=== PATIENT | female | born 1975 ===

== ENCOUNTER 2025-05-13 07:25 | Emergency (ER) | payer SELFPAY ==
--- NOTE | ~2025-05-13 | XR_ITS ---
CLINICAL HISTORY: pain 3 view right foot Comparison: None provided Findings: No fracture. Bipartite os peroneum. Mild 1st metatarsophalangeal joint osteoarthritis. Tiny focus of heterotopic ossification within the distal Achilles tendon. No tibiotalar joint effusion. IMPRESSION: 1. No acute findings. This document has been electronically signed by: Tavo Shah DO on 05/13/2025 09:45:18
[2025-05-13 07:30] VITALS: BP 116/68; PULSE 83; RESP 18; TEMP 36.1; O2SAT 97; BMI 32.1
--- NOTE | 2025-05-13 07:49 | ED.LOWEXIN ---
HPI - Extremity Injury (Lower) General Chief Complaint: Extremity Injury, Lower Stated Complaint: Right foot hurts Time Seen by Provider: 05/13/25 07:35 Source: patient Mode of arrival: ambulatory Limitations: no limitations History of Present Illness ED Provider: SABIHA Arango HPI Narrative: Year old female presents to the emergency department with progressively worsening right-sided foot pain since . She reports a throbbing constant pain to the arch of the foot denies associated falls or trauma. Reports difficulty walking due to pain she reports she has been limping. Patient reports pain is severe. She does not like taking any medication for pain. Denies numbness, tingling, lower extremity swelling, history of DVT or PE, chest pain, shortness of breath, fevers and chills complaint: foot injury Onset (ago): day(s) (4) Related Data Previous Rx's ?Medication ?Instructions ?Recorded ketorolac 10 mg tablet 10 mg PO TID PRN pain 5 days #15 05/13/25 tabs prednisone 20 mg tablet 40 mg (2 x 20 mg) PO DAILY 5 days 05/13/25 #10 tabs Allergies Allergy/AdvReac Type Severity Reaction Status Date / Time oxycodone (OXYCODONE) Allergy Mild HALLUCINATI Verified 05/13/25 07:32 ONS Review of Systems Review of Systems: Yes all other systems are reviewed and are negative PMFSH Past Medical History Attestation statement: The following information was validated with the patient. Source: old records reviewed and nursing notes reviewed Social History Social History Advance Directives: No Advance Directives Information Provided: Yes Physical Exam Exam: Exam: Appearance: Alert.? Oriented X3.? No acute distress.? Head: Normocephalic, atraumatic, no step-offs or deformities Eyes: Pupils equal, round and reactive to light.? Neck: Normal inspection.? Neck supple.? CVS: Pulses normal.? Respiratory: No respiratory distress Abdomen: Soft and nontender.? Skin: Skin warm and dry.? Normal skin color.? Normal skin turgor.? Extremities: No lower extremity edema.? No calf ttp, negative dalton b/l 5/5 strength to bilateral upper and lower extremities 2+ DP,AT,PT equal and b/l . Normal distal sensation + TTP to arch of R foot over plantar fascia. Back: No midline tenderness, no C-spine tenderness, full range of motion, no CVA tenderness bilaterally Neuro: Oriented X 3.? No motor deficit.? No sensory deficit. CN 2-12 intact Vital Signs: Vital Signs: Last Vital Signs Temp 96.9 F 05/13/25 07:30 Pulse 83 05/13/25 07:30 Resp 18 05/13/25 07:30 BP 116/68 05/13/25 07:30 Pulse Ox 97 05/13/25 07:30 O2 Del Method Room Air 05/13/25 07:30 BMI result Body Mass Index 32.1 vss Course Reevaluation(s) Reevaluation #1: CBC unremarkable. D-dimer negative. Uric acid level within normal range. Unlikely gout, DVT. Time: 08:51 Reevaluation #2: 3 view right foot Comparison: None provided Findings: No fracture. Bipartite os peroneum. Mild 1st metatarsophalangeal joint osteoarthritis. Tiny focus of heterotopic ossification within the distal Achilles tendon. No tibiotalar joint effusion. IMPRESSION: 1. No acute findings. Time: 09:56 Reevaluation #3: Educated patient on diagnosis and treatment plan, answered all question, patient verbalizes understanding. At this time patient will be discharged home, advised to return with new or worsening symptoms. Educated on worrisome signs and symptoms and when to return. At this time I feel comfortable discharge home. Time: 09:56 Medications Administered Discontinued Medications Generic Name Dose Route Start Last Admin Trade Name Buzzq PRN Reason Stop Dose Admin Ketorolac Tromethamine 30 mg 05/13/25 07:49 05/13/25 08:23 Ketorolac Tromethamine 30 Mg/Ml Vial IM 05/13/25 07:50 30 mg ONCE ONE Administration Medical Decision Making Medical Decision Making [facility] Narrative: 1952 49 year old female presents w/ 4 days right foot pain progressivly worsening PE No lower extremity edema.? No calf ttp, negative dalton b/l 5/5 strength to bilateral upper and lower extremities 2+ DP,AT,PT equal and b/l . Normal distal sensation + TTP to arch of R foot over plantar fascia. Hx and pe concerning for plantar fasciitts. Unlikley arterial or venous occlusion, acute threat to [place], fracture dislocation. No signs of cellulitis or foreign body/puncture. Unlikely osteomyelitis Plan imaging, D-dimer, Toradol IM Differential Diagnosis Differential Diagnoses: The differential diagnosis associated with the presentation includes (Hx and pe concerning for plantar fasciitts. Unlikley arterial or venous occlusion, acute threat to [place], fracture dislocation. No signs of cellulitis or foreign body/puncture. Unlikely osteomyelitis) Admission/Observation Consideration of admission/observation: Escalation of care including admission/observation considered (unlikely ) Lab Data [facility] Lab Attestation statement: I reviewed the patient's lab results. 05/13/25 08:15 05/13/25 08:15 Labs: Lab Results 05/13/25 05/13/25 Range/Units 08:15 08:16 WBC 7.2 (4.8-10.8) X10*3/uL RBC 4.33 (4.20-5.50) X10*6/uL Hgb 13.3 (12.0-16.0) g/dl Hct 37.8 (37.0-47.0) % MCV 87.3 (80.0-98.0) fL MCH 30.7 (27.0-33.0) pg MCHC 35.2 H (31.0-35.0) g/dl RDW 12.0 (11.0-16.0) % Plt Count 206 (160-400) X10*3/uL MPV 9.6 (9.4-12.3) fL Immature Gran % (Auto) 0.3 (0.0-0.4) % Neut % (Auto) 67.4 (45-73) % Lymph % (Auto) 22.9 (20-40) % [place] % (Auto) 6.0 (2-11) % Eos % (Auto) 2.4 (0-4) % Baso % (Auto) 1.0 (0-2) % Lymph # (Auto) 1.7 (1.2-4.9) X10*3/uL [place] # (Auto) 0.4 (0.1-1.2) X10*3/uL Eos # (Auto) 0.2 (0.0-0.4) X10*3/uL Baso # (Auto) 0.1 (0.0-0.2) X10*3/uL Abs Immat Gran (auto) 0.02 (0.00-0.03) X10*3/uL Absolute Neuts (auto) 4.9 (2.0-8.3) x10*3/uL Absolute Nucleated RBC 0.000 (0.0-0.012) X10*3/uL Nucleated RBC % (auto) 0.0 (0.0-0.2) /100WBC Hold Purple Top SEE NOTE D-Dimer High Sensitivty < 150 NG/ML Sodium 140 (135-145) mmol/L Potassium 4.0 (3.3-5.1) mmol/L Chloride 109 H (96-108) mmol/L Carbon Dioxide 25 (22-29) mmol/L Anion Gap 10 L (12-20) BUN 14 (9-16) mg/dL Creatinine 0.73 (0.5-1.4) mg/dL Estim Creat Clear Calc 69.4 Estimated GFR > 60 Random Glucose 116 H (60-115) mg/dL Uric Acid 3.9 (2.4-5.7) mg/dL Calcium 9.3 (8.4-10.2) mg/dL Independent Interpretation I performed an independent interpretation of an: Plain X-Ray ( 3 view right foot Comparison: None provided Findings: No fracture. Bipartite os peroneum. Mild 1st metatarsophalangeal joint osteoarthritis. Tiny focus of heterotopic ossification within the distal Achilles tendon. No tibiotalar joint effusion. IMPRESSION: 1. No acute findings.) Radiology Impression Discussion of test interpretation with radiology: I have reviewed the radiologist's reading. Independent Historian Clinical information obtained from an independent historian. History obtained from or confirmed by: Spouse Prescription Management I considered prescription management with: Pain Medication and Other (prednisone ) Critical Care Time Critical Care Time Critical Care Time: No Discharge Plan Discharge Clinical Impression: Plantar fasciitis of right foot Patient Disposition: Home, Self-Care Additional Instructions: Take your medications as prescribed. If you were prescribed antibiotics today, it is important that you take your medication to their entirety, do not skip any doses, do not finish them early. Follow-up with your primary care provider this week. Return to the emergency department with new or worsening symptoms. Such as fevers, chills, chest pain, shortness of breath, nausea, vomiting, dizziness, headache, vision changes, lethargy In case of emergency call 911 Toradol has been sent to your pharmacy, you tolerated this well in the department. Please take this as prescribed do not take this with ibuprofen, or other NSAIDs, do not mix this with alcohol. Side effects of this medication including increased risk for bleeding and possible kidney injury. 3 view right foot Comparison: None provided Findings: No fracture. Bipartite os peroneum. Mild 1st metatarsophalangeal joint osteoarthritis. Tiny focus of heterotopic ossification within the distal Achilles tendon. No tibiotalar joint effusion. IMPRESSION: 1. No acute findings. Prescriptions: New prednisone 20 mg tablet 40 mg PO DAILY 5 Days Qty: 10 0RF ketorolac 10 mg tablet 10 mg PO TID PRN (Reason: pain) 5 Days Qty: 15 0RF Rx Instructions: Tolerated IM or IV in department Referrals: Physician,Unknown J [Physician, Medical] Stand Alone Forms: Work/School Release Print Language: Nepali
--- OUTSIDE RECORDS SUMMARY | 2025-05-13 08:09 | XMS_ITS ---
Author Name [facility] Organization Unknown Care Team Organization Name Specialty Phone Email Start Date End [facility] PRANEETH BRUCE Primary Care 06/30/2022 04/10/20 24
--- OUTSIDE RECORDS SUMMARY | 2025-05-13 08:09 | XMS_ITS | Clinical Summary ---
Author Organization 175 [facility] Address [address] [place] [address] Phone Care Team Providers Care Waiter/Waitress Informal Name Role Phone Dalila Pineda Primary Care Provider + Allergies Active Allergy Reactions Criticality Noted Date Comments Oxycodone Hcl 12/15/2019 Hallucinations Medications albuterol HFA (PROAIR HFA ; PROVENTIL HFA ; VENTOLIN HFA) 90 mcg/actuation inhaler Inhale 2 Puffs into the lungs every 6 hours as needed for Cough or Wheezing. 4 Active diclofenac (VOLTAREN) 1 % topical gel Apply 2 g topically 2 (two) times a day. 100 g 1 5 Active cyclobenzaprine (FLEXERIL) 5 mg tablet Take 1 tablet (5 mg total) by mouth at bedtime as needed for muscle spasms. 30 tablet 5 Active ibuprofen (ADVIL,MOTRIN) 600 mg tabletIndicatio ns:Calcific tendonitis of right shoulder Take 1 tablet (600 mg total) by mouth 3 (three) times a day if needed for mild pain (pain). Take with food 90 tablet 5 Active inhalational spacing device (Aerochamber MV) inhaler Use as instructed 1 each 5 11/30/19 26 Active budesonide-form oteroL (SYMBICORT) 160-4.5 mcg/actuation inhaler Inhale 2 puffs by mouth 2 (two) times a day. 3 each 3 5 12/01/19 26 Active Active Problems Problem Noted Date Diagnosed Date Obesity (BMI 30.0-34.9) 01/26/2022 Encounters Date Type Department Care Team Description 04/02/2025 2:30 PM EDT Procedure visit Orthopedic Surgery [facility] [address] [facility] 160 [place] [phone] Chata Hurley MD Calcific tendonitis of right shoulder (Primary Dx) 02/15/2025 1:00 PM EDT Office Visit Orthopedic Surgery [facility] 175 [facility] [address] [place] [phone] Jane Funes PA Right carpal tunnel syndrome (Primary Dx); Calcific tendonitis of right shoulder from Last 3 Months Surgical History Surgery Date Site/Laterality Comments OTHER SURGICAL HISTORY PROCEDURE: ANESTHESIA FOR SECTION; COMMENT: x 2 Medical History Medical History Date Comments History of cerebral hemorrhage D X:History of cerebral hemorrhage; COMMENT: age 17 - pt states told due to stress ? Obesity (BMI 30.0-34.9) DX:Obesi ty (BMI 30.0-34.9) Family History Medical History Relation Name Comments Other: legally blind Mother Relation Name Status Comments Father (Age 73) covid 19 Mother Alive Social History Tobacco Use Types Packs/Day Years Used Date Smoking Tobacco: Never Smokeless Tobacco: Never Tobacco Cessation:Counseling Given: Not Answered Alcohol Use Standard Drinks/Week Comments Never 0 (1 standard drink = 0.6 oz pur e alcohol) Housing Instability Answer Date Recorde d Are you worried that in the next 2 months you may not have stable housing? No 11/12/2024 Food Access & Nutrition Answer Date Rec orded Do you have access to a vari ety of food including fruits and vegetables? Yes 11/12/2024 Access to Healthcare Answer Date Record ed Within the last 3 months, pavel w many times did you visit the emergency department for your medical care? 0 11/12/2024 Health Literacy Answer Date Recorded How often do you need to hav e someone help you when you read instructions, pamphlets, or other written material from your doctor or pharmacy? Never 11/12/2024 Caregiver: How often do you need to have someone help you when you read instructions, pamphlets, or other written material from your doctor or pharmacy? Not on file 11/12/2024 Financial Risk Answer Date Recorded How hard is it for you to pa y for the very basics like food, housing, medical care, and air conditioning / heating? Not very hard 11/12/2024 Transportation Answer Date Recorded Has the lack of transportati on kept you from meetings, work, or from getting things needed for daily living? No Has the lack of transportati on kept you from medical appointments or from getting medications? No 11/12/2024 Social Isolation Answer Date Recorded How often do you feel lonely or isolated from th ose around you? Never 11/12/2024 Food Risk Answer Date Recorded Within the past 12 months we worried whether our food would run out before we got money to buy more. Never true 11/12/2024 Within the past 12 months th e food we bought just didn't last and we didn't have money to get more. Never true 11/12/2024 Dependent Care Answer Date Recorded Do you need help finding or paying for care for your loved ones. For example, children's service supervisor or elderly care for an older adult? No 11/12/2024 Education Answer Date Recorded Do you think completing more education or training, like finishing a GED, going to college, or learning a trade, would be helpful for you? N/A 11/12/2024 Employment and Income Answer Date Recor ded During the last four weeks, have you been actively looking for work? No 11/12/2024 Living Situation Answer Date Recorded What is your living situation? 0 11/12/2024 Comments No Sex and Gender Information Value Date Recorded Sex Assigned at Female 01/30/2025 2:29 PM EDT Legal Sex Female 4:32 PM EST Gender Identity Female 01/30/2025 2:29 PM EDT Sexual Orientation Not on file Obstetrics History Para Term AB IAB SAB Ectopic Multiple Livin g Live Births 2 Last Filed Vital Signs Vital Sign Reading Time Taken Comments Blood Pressure 118/82 01/19/2025 2:19 PM EDT Pulse 65 01/19/2025 2:19 PM EDT Temperature 36.6 C (97.8 F) 01/19/2025 2:19 PM EDT Respiratory Rate 14 02/15/2025 12:48 PM EDT Oxygen Saturation 98% 01/19/2025 2:19 PM EDT Inhaled Oxygen Concentration - - Weight 65.8 kg (145 lb) 04/02/2025 2:19 PM EDT Height 142.2 cm (4' 7.98 ) 04/02/2025 2:19 PM ED T Body Mass Index 32.53 04/02/2025 2:19 PM EDT Plan of Treatment Upcoming Encounters Date Type Department Care Team (Late st Contact Info) Description 05/18/2025 9:30 AM EDT Office Visit Orthopedic Surgery - [place] [address] [phone] Jane Funes PA 175 [place] [address] 06/15/2025 2:15 PM EDT Office Visit Pulmonology - [address] [phone] Karissa Bowman MD [address] [address] 07/27/2025 2:00 PM EST Office Visit Internal Medicine - [address] [phone] Dalila Pineda PA [address] [address] Health Maintenance Due Date Last Done Comments DTaP,Tdap,and Td Vaccines (1 - Tdap) 1993 Hepatitis B Vaccines (1 of 3 - 19+ 3-dose series) 1993 Colorectal Cancer Screening: Colonoscopy 07/22/2022 HIV Screening 07/22/2022 Hepatitis C Screening 07/22/2022 Cervical Cancer Screening: Pap Smear 10/12/2022 10/12/2019 Pneumococcal Vaccine: 50+ Years (1 of 1 - PCV) 2024 Zoster Vaccines (1 of 2) 2024 COVID-19 Vaccine (3 - season) 2025 10/09/2020, 09/11/2020 Social Influencers of Health Screening 11/12/2025 11/12/2024 Breast Cancer Screening 02/08/2027 02/09/20 25, 10/15/2023, 10/13/2022, Additional history exists Cholesterol Screening (Lipid Panel) 01/18/2029 01/19/2024, 01/19/2024 RSV Immunization Adult Patients (1 - 1-dose 75+ series) 2049 Depression Screening Completed 11/12/2024 Influenza Vaccine Completed 05/01/2025, , 04/20/2023, Additional history exists HIB Vaccines Aged Out No longer eligi ble based on patient's age to complete this topic HPV Vaccines Aged Out No longer eligi ble based on patient's age to complete this topic Hepatitis A Vaccines Aged Out No long er eligible based on patient's age to complete this topic IPV Vaccines Aged Out No longer eligi ble based on patient's age to complete this topic MMR Vaccines Aged Out No longer eligi ble based on patient's age to complete this topic Meningococcal ACWY Vaccine Aged Out N o longer eligible based on patient's age to complete this topic Meningococcal B Vaccine Aged Out No l onger eligible based on patient's age to complete this topic RSV Immunization Patients Under 20 months Aged Out No longer eligible based on patient's age to complete this topic Varicella Vaccines Aged Out No longer eligible based on patient's age to complete this topic Procedures Procedure Name Priority Date/Time Associated Diagnosis Comments MG MAMMO DIGITAL SCREENING W MARTÍN BILAT Routine 02/08/2025 7:20 AM EDT Routine physical examination LIPID PANEL Routine 01/19/2024 HM PAP SMEAR Routine 10/12/2019 from Last 3 Months or Most Recently Relevant to Health Maintenance Results * MG Mammo Digital Screening w Martín bilat (02/08/2025 7:20 AM EDT) Anatomical Region Laterality Modality Breast Bilateral Mammography 02/08/2025 8:14 AM EDT Impressions 02/08/2025 8:18 AM EDT No mammographic evidence of malignancy. A negative mammogram in the presence of a clinically suspicious palpable abnormality does not preclude the possibility of malignancy or alter the indications for biopsy. PQRI CPT II 3342F Code 99079, 62079 PQRI 225 CPT II 7025F TISSUE DENSITY: The breasts are heterogeneously dense, which may obscure small masses. (BI-RADS category C) IMPRESSION: Benign. BI-RADS CATEGORY: 2 - BENIGN RECOMMENDATION: Screening bilateral mammogram is recommended in 1 year. Mammo Location: [facility], [facility], [address] [place] [id number] -------- FINAL REPORT -------- Dictated By: Tesfaye Gómez Dictated Date: 02/08/2025 08:14 ET Assigned Physician: Tesfaye Gómez Reviewed and Electronically Signed By: Tesfaye Gómez Signed Date: 02/08/2025 08:18 ET Workstation ID: [id number] Transcribed By: Self Edit Transcribed Date: 02/08/2025 08:14 ET Narrative 02/08/2025 8:18 AM EDT CLINICAL: The patient is a 49 years Female presenting for routine screening mammography. COMPARISON: 10/15/2023, 10/12/2022, and 10/08/2021. TECHNIQUE: Full-field digital mammography of the breasts bilaterally consisting of tomosynthesis in MLO and CC projection is performed in the StudyAppsographe 2000-D unit. Computer aided detection utilizing the iCAD system was utilized. FINDINGS: The breasts are again seen to be composed of a combination of fatty and moderately dense fibroglandular elements. Bilateral benign punctate calcifications, most if not all of which are dermal, are stable. These cyst anteriorly in the left breast seen on ultrasound examinations most recently 10/19/2023 has nearly completely resolved. There is no suspicious cluster of microcalcifications, mass, or area of architectural distortion. There is no skin thickening or nipple retraction. Procedure Note Tesfaye Gómez MD - 02/08/2025 CLINICAL: The patient is a 49 years Female presenting for routinescreening mammography. COMPARISON: 10/15/2023, 10/12/2022, and 10/08/2021. TECHNIQUE: Full-field digital mammography of the breasts bilaterallyconsisting of tomosynthesis in MLO and CC projection is performed in theStudyAppsographe 2000-D unit. Computer aided detection utilizing the PBS-Bioystem was utilized. FINDINGS: The breasts are again seen to be composed of a combination offatty and moderately dense fibroglandular elements. Bilateral benignpunctate calcifications, most if not all of which are dermal, are stable.These cyst anteriorly in the left breast seen on ultrasound examinationsmost recently 10/19/2023 has nearly completely resolved. There is nosuspicious cluster of microcalcifications, mass, or area of architecturaldistortion. There is no skin thickening or nipple retraction. IMPRESSION: No mammographic evidence of malignancy. A negative mammogram in the presence of a clinically suspicious palpableabnormality does not preclude the possibility of malignancy or alter theindications for biopsy. PQRI CPT II 3342F Code 47541, 21321 PQRI 225 CPT II 7025F TISSUE DENSITY: The breasts are heterogeneously dense, which may obscuresmall masses. (BI-RADS category C) IMPRESSION: Benign. BI-RADS CATEGORY: 2 - BENIGN RECOMMENDATION: Screening bilateral mammogram is recommended in 1 year. Mammo Location: [facility], [facility], [address] [place] [id number] -------- FINAL REPORT -------- Dictated By: Tesfaye Gómez Dictated Date: 02/08/2025 08:14 ET Assigned Physician: Tesfaye Gómez Reviewed and Electronically Signed By: Tesfaye Gómez Signed Date: 02/08/2025 08:18 ET Workstation ID: [id number] Transcribed By: Self Edit Transcribed Date: 02/08/2025 08:14 ET Dalila LANDIS IMG BI PROCEDURES Final Result * (ABNORMAL) Lipid panel (01/19/2024) LDL/HDL Ratio 4 0 - 4 Triglycerides 91 0 - 150 mg/dL Cholesterol 198 0 - 200 mg/dL HDL 51 >=40 mg/dL LDL Cholesterol 129(A) 0 - 100 mg/dL Blood Venous blood specimen / Unknown Historical Provider LAB BLOOD ORDERABLES Eugenia l Result * Pap Smear (10/12/2019) Pap smear no interpretation , abstracted Historical Provider HEALTH MAINTENANCE Final Result from Last 3 Months or Most Recently Relevant to Health Maintenance Insurance [facility] [address] [place] [address] Care Teams Waiter/Waitress Informal Relationship Specialty Start Date End Date Dalila Pineda PA 175 [facility] [address] [place] [address] PCP - General Internal Medicine 12/21/19
[2025-05-13 08:21] LABS: MANUAL DIFF FLAG NO
[2025-05-13 08:24] LABS: Hematocrit 37.8 % (37.0-47.0); Hemoglobin 13.3 g/dl (12.0-16.0); Imm Gran Abs Auto 0.02 X10*3/uL (0.00-0.03); Imm Gran Pct Auto 0.3 % (0.0-0.4); Lymphocytes Absolute Auto 1.7 X10*3/uL (1.2-4.9); Mean Corpuscular HGB Conc 35.2 g/dl (31.0-35.0); Mean Corpuscular Hemoglobin 30.7 pg (27.0-33.0); Mean Corpuscular Volume 87.3 fL (80.0-98.0); NRBC Abs Auto 0.000 X10*3/uL (0.0-0.012); NRBC Pct Auto 0.0 /100WBC (0.0-0.2); Platelet Count 206 X10*3/uL (160-400); Red Blood Count 4.33 X10*6/uL (4.20-5.50); White Blood Count 7.2 X10*3/uL (4.8-10.8)
[2025-05-13 08:36] LABS: D Dimer High Sensitivity < 150 NG/ML
[2025-05-13 08:47] LABS: Anion Gap 10 (12-20); Blood Urea Nitrogen 14 mg/dL (9-16); Calcium 9.3 mg/dL (8.4-10.2); Carbon Dioxide 25 mmol/L (22-29); Chloride 109 mmol/L (96-108); Creatinine Clr Calc Pharmacy 69.4; Estimated Glomerular Filt Rate > 60; Potassium 4.0 mmol/L (3.3-5.1); Sodium 140 mmol/L (135-145); Uric Acid 3.9 mg/dL (2.4-5.7)
[2025-05-13 10:09] VITALS: BP 104/53; PULSE 74; RESP 18; TEMP 36.4; O2SAT 100
[2025-05-13 10:28] VITALS: BP 104/53; PULSE 74; RESP 18; TEMP 36.4; O2SAT 100
== END 2025-05-13 10:29 | disposition home or self-care (01) ==
PROVIDERS: Physician Assistant; Emergency Provider Emergency Medicine
DX: M72.2 Plantar fascial fibromatosis (principal); M79.671 Pain in right foot; R26.2 Difficulty in walking, not elsewhere classified
CPT/HCPCS: 36415; 73630; 80048; 84550; 85025; 85379; 96372; 99284; J1885

== ENCOUNTER → 2025-05-13 07:42 | Outpatient (BNV) | payer OTHER, SELFPAY | PROVIDERS: Emergency Provider Emergency Medicine; Visit Provider Radiology Diagnostic Radiology | DX: M79.671 Pain in right foot (principal) | CPT/HCPCS: 73630 ==